=== PATIENT | male | born 1975 | race Caucasian/White ===

== ENCOUNTER 2017-10-28 10:58 | Outpatient (CLI) | payer BC ==
--- NOTE | 2017-10-28 14:07 | MRI ---
MRI OF THE LUMBAR SPINE WITHOUT IV CONTRAST: Date: 10/28/17 INDICATION: Low back pain with pain radiating down the left leg. Patient has had left-sided foot drop since 2016. TECHNIQUE: Multiplanar, multisequence MR images were obtained of the lumbar spine without IV contrast. No radiog raphic or MR comparisons are available. Five lumbar-type vertebral bodies are assumed for the purpose s of this exam. FINDINGS: The conus is seen to terminate approximately mid L2. There is loss of the normal disc signal and heig ht at L1-2, L2-3, L4-5, and L5-S1. Spinal alignment is within normal limits. Bone marrow signal inten sity appears within normal limits. The visualized retroperitoneum and paravertebral soft tissues appear within normal limits. At L5-S1, there is a broad based disc bulge, asymmetric to the left, inducing moderate left lateral r ecess narrowing without definite impingement of the traversing left S1 nerve root. The asymmetric dis c bulge and facet osteoarthrosis induces moderate to severe left and mild right neural foraminal narr owing. At L4-5, there is a broad based disc bulge with facet hypertrophy inducing mild neural foraminal narr owing. This is greater on the right due to a superimposed right foraminal to extraforaminal disc prot rusion best seen on image 3 of the sagittal T2 series and image 45 of the axial T2 series. At L3-4, there is a mild broad based bulge without appreciable central canal or neural foraminal narr owing. At L2-3, there is a broad based bulge with facet degenerative change inducing mild neural foraminal n arrowing. At L1-2, there is a mild broad based bulge without appreciable central canal or neural foraminal narr owing. At T12-L1, there is no appreciable central canal or neural foraminal narrowing. IMPRESSION: 1. Asymmetric to the left broad based disc bulge at L5-S1 induces moderate left lateral recess narro wing without definite impingement of the traversing left S1 nerve root. There is moderate to severe l eft neural foraminal narrowing due to the disc bulge and facet hypertrophy. 2. Right foraminal disc protrusion at L4-5 induces mild right neural foraminal narrowing. POS: [facility]
== END 2017-10-28 10:59 | disposition home or self-care (01) ==
LOC: TBSIIMAG 10:58
PROVIDERS: ATTEND Neurological Surgery
DX: M51.06 Intervertebral disc disorders with myelopathy, lumbar region (principal); M51.27 Other intervertebral disc displacement, lumbosacral region; M47.816 Spondylosis without myelopathy or radiculopathy, lumbar region; M99.53 Intervertebral disc stenosis of neural canal of lumbar region
CPT/HCPCS: 72148

== ENCOUNTER 2017-11-09 06:20 | Day surgery (SDC) | payer BC ==
[2017-11-02 11:10] VITALS: BMI 27.2
[2017-11-09 06:54] LABS: #Eosinphils 0.2 thou/uL (0.0-0.7); #Lymphocytes 1.9 thou/uL (1.20-3.40); #Monocytes 0.7 thou/uL (0.11-0.59); #Neutrophils 3.7 thou/uL (1.40-6.50); %Basophils 0.5 % (0.0-1.0); %Eosinophils 3.4 % (0.0-10.0); %Lymphocytes 29.6 % (21.0-51.0); %Monocytes 10.3 % (0.0-10.0); %Neutrophils 56.2 % (42.0-75.0); Hemoglobin 16.3 g/dL (14.0-18.0); Mean Corpuscular HGB CONC 33.8 g/dL (32.0-36.0); Mean Corpuscular Hemoglobin 31.8 pg (27.0-31.0); Mean Corpuscular Volume 94.2 fl (80.0-94.0); Mean Platelet Volume 8.7 fL (7.4-10.4); Platelet Count 202 thou/uL (130-400); Red Blood Cell (RBC) Count 5.11 mill/uL (4.70-6.10); White Blood Cell (WBC) Count 6.5 thou/uL (4.8-10.8)
[2017-11-09] MEDS ORDERED: CEFAZOLIN/Water 2 GM/20 ML SYRINGE ONE (07:07)
[2017-11-09 07:08] LABS: Anion Gap 12 mmol/L (10-20); BUN (Urea Nitrogen) 18 mg/dL (8.9-20.6); Calc. Creatinine Clearance 134 mL/min (70-130); Calcium 9.6 mg/dL (7.8-10.44); Carbon Dioxide 23 mmol/L (22-29); Chloride 108 mmol/L (98-107); Estimated GFR-MDRD Greater than 90; Glucose 106 mg/dL (70-105); Sodium 139 mmol/L (136-145)
[2017-11-09] MEDS ORDERED: Midazolam HCl 2 mg/2 ml Vial ONE (07:10)
[2017-11-09] MEDS ORDERED: Fentanyl 100 MCG/2 ML VIAL ONE (07:10)
[2017-11-09] MEDS ORDERED: HYDROmorphone 0.5 MG/0.5 ML SYRINGE ONE (07:10)
--- NOTE | 2017-11-09 09:29 | OP ---
DATE OF PROCEDURE: 11/09/2017 SURGEON: Aquiles Nix M.D. DEBATE DIRECTOR: Sergei Walker PROCEDURE: Left L5 foraminotomy and discectomy. PROCEDURE IN DETAIL: The patient was brought into the operating room, intubated. He was rolled in t he prone position on gel-filled chest rolls. Incision made exposing L5 and S1 on the left and our le elizabeth was confirmed by x-ray. We performed complete left L5-S1 facetectomy, identified the left L5 ner ve root, removed the yellow ligament and identified a bulging disk beneath it. A complete decompress ion of left L5 was achieved from removal of disk and foraminal decompression. The wound was then ext ensively irrigated, immaculate hemostasis was secured. Vancomycin powder was applied and the wound w as closed in anatomic layers.
[2017-11-09] MEDS ORDERED: HYDROcodone/Acetaminophen 10/325 mg Tablet ONE (10:26)
[2017-11-09] MEDS ORDERED: PHENYLEPHRINE-NS 100 MCG/ML 10 ML SYRINGE ONE (14:24)
[2017-11-09] MEDS ORDERED: Ondansetron HCl/PF 4 MG/2 ML Vial ONE (14:24)
[2017-11-09] MEDS ORDERED: Glycopyrrolate 0.2 MG/ML 5 ML SYRINGE ONE (14:24)
[2017-11-09] MEDS ORDERED: Lidocaine 1% PF 5 ML VIAL ONE (14:24)
[2017-11-09] MEDS ORDERED: Propofol 200 MG/20 ML VIAL ONE (14:24)
[2017-11-09] MEDS ORDERED: Ketorolac Tromethamine 30 MG/ML VIAL ONE (14:24)
[2017-11-09] MEDS ORDERED: ePHEDrine/0.9% NaCl/PF SYRINGE 50 mg/10 ml ONE (14:24)
[2017-11-09] MEDS ORDERED: Dexamethasone 20 MG/5 ML VIAL ONE (14:24)
== END 2017-11-09 10:43 | disposition home or self-care (01) ==
LOC: SDC 06:20
PROVIDERS: ATTEND Neurological Surgery
PROC: 0SB20ZZ Excision of Lumbar Vertebral Disc, Open Approach (ICD-10-PCS; principal; 2017-11-09)
DX: M54.16 Radiculopathy, lumbar region (principal); I10 Essential (primary) hypertension; E78.5 Hyperlipidemia, unspecified; M10.9 Gout, unspecified; G25.81 Restless legs syndrome; J30.2 Other seasonal allergic rhinitis
CPT/HCPCS: 36415; 76001; 80048; 85025; 93005; 93010; J1100; J1170; J1885; J2001; J2250; J2405; J2704; J3010; J3370